=== PATIENT | female | born 1965 | race Caucasian/White ===

== ENCOUNTER 2017-07-13 13:06 | Inpatient (IN) | payer OTHER ==
--- NOTE | 2017-07-13 13:59 | HP ---
CIWA Score - CIWA Score Nausea/Vomitin-No Nausea/No Vomiting Muscle Tremors: 4-Moderate,w/Arms Extend Anxiety: 3 Agitation: 4-Moderately Restless Paroxysmal Sweats: 3 Orientation: 0-Oriented Tacttile Disturbances: 0-None Auditory Disturbances: 0-None Visual Disturbances: 0-None Headache: 0-None Present CIWA-Ar Total Score: 14 Admission ROS BHS - HPI Chief Complaint: I tried AA and didn't work. I need help. Allergies/Adverse Reactions: Allergies Allergy/AdvReac Type Severity Reaction Status Date / Time No Known Allergies Allergy Verified 07/13/17 14:00 History of Present Illness: pt is a 52yr old female with a history of alcohol dependence seeking detox for treatment. This is her first time in detox. pt was brought in by her son and ex- and she states she needs help. Exam Limitations: Intoxication - Ebola screening Have you traveled outside of the country in the last 21 days: No Have you had contact with anyone from an Ebola affected area: No Have you been sick,other than usual withdrawal symptoms: No Do you have a fever: No - Review of Systems Constitutional: Chills, Diaphoresis, Night Sweats, Changes in sleep EENT: reports: Tearing Respiratory: reports: No Symptoms reported Cardiac: reports: Syncope GI: reports: Diarrhea, Poor Appetite, Poor Fluid Intake, Indigestion : reports: No Symptoms Reported Musculoskeletal: reports: Back Pain Integumentary: reports: Flushing, Sweating Neuro: reports: Tingling, Tremors Endocrine: reports: Excessive Sweating, Flushing, Intolerance to Cold, Intolerance to Heat Hematology: reports: No Symptoms Reported Psychiatric: reports: Orientated x3, Agitated, Anxious Other Systems: Reviewed and Negative Patient History - Patient Medical History Hx Anemia: No Hx Asthma: No Hx Chronic Obstructive Pulmonary Disease (COPD): No Hx Cancer: No Hx Cardiac Disorders: No Hx Congestive Heart Failure: No Hx Hypertension: No Hx Hypercholesterolemia: No Hx Pacemaker: No HX Cerebrovascular Accident: No Hx Seizures: No Hx Dementia: No Hx Diabetes: No Hx Gastrointestinal Disorders: No Hx Liver Disease: No Hx Genitourinary Disorders: No Hx Sexually Transmitted Disorders: No Hx Renal Disease (ESRD): No Hx Thyroid Disease: No Hx Human Immunodeficiency Virus (HIV): No (negative) Hx Hepatitis C: No Hx Depression: Yes Hx Suicide Attempt: No (denies) Hx Bipolar Disorder: No Hx Schizophrenia: No - Patient Surgical History Past Surgical History: No - PPD History Previous Implant?: Yes Documented Results: Negative w/o proof PPD to be Administered?: Yes - Reproductive History Patient is a Female of Child Bearing Age (11 -55 yrs old): No Last Menstrual Period: 06/22/17 Patient : No - Smoking Cessation Smoking history: Never smoked Have you smoked in the past 12 months: No Hx Chewing Tobacco Use: No Initiated information on smoking cessation: No - Substance & Tx. History Hx Alcohol Use: Yes Substance Use Type: Alcohol Hx Substance Use Treatment: No - Substances Abused Alcohol Route: Oral Frequency: Daily Amount used: a fifth of vodka Age of first use: 25 Date of Last Use: 07/13/17 Family Disease History - Family Disease History Family History: Denies Admission Physical Exam [facility] - Physical General Appearance: Yes: Appropriately Dressed, Moderate Distress, Tremorous, Irritable, Sweating, Anxious HEENTM: Yes: Hearing grossly Normal, Normal Voice Respiratory: Yes: Lungs Clear, Normal Breath Sounds, No Respiratory Distress Neck: Yes: No masses,lesions,Nodules Breast: Yes: Within Normal Limits Cardiology: Yes: Regular Rhythm, Regular Rate, S1, S2 Abdominal: Yes: Normal Bowel Sounds, Non Tender, Soft Genitourinary: Yes: Within Normal Limits Back: Yes: Normal Inspection Musculoskeletal: Yes: Back pain Extremities: Yes: Normal Capillary Refill, Normal Inspection, Non-Tender, Tremors Neurological: Yes: Fully Oriented, Alert, Normal Response Integumentary: Yes: Normal Color Lymphatic: Yes: Within Normal Limits - Diagnostic (1) Alcohol dependence with uncomplicated withdrawal Current Visit: Yes Status: Chronic Cleared for Admission [facility] - Detox or Rehab [facility] Level of Care: Medically Managed Detox Regimen/Protocol: Librium
[2017-07-13] MEDS ORDERED: MENTHOL/PHENOL 1 EACH UD MM PRN (14:10)
[2017-07-13] MEDS ORDERED: guaiFENesin/D-METHORPHAN HB 10 ML UNIT-DOSE CUPS PO PRN (14:10)
[2017-07-13] MEDS ORDERED: IBUPROFEN 400 MG TABLET (FP) PO PRN (14:10)
[2017-07-13] MEDS ORDERED: hydrOXYzine PAMOATE 50 MG CAPSULE (FP) PO PRN (14:10)
[2017-07-13] MEDS ORDERED: chlordiazePOXIDE HCL 25 MG CAPSULE PO PRN (14:10)
[2017-07-13] MEDS ORDERED: MAG HYDROX/AL HYDROX/SIMETH 30 ML UNIT-DOSE CUP PO PRN (14:10)
[2017-07-13] MEDS ORDERED: LOPERAMIDE HCL 2 MG CAPSULE PO PRN (14:10)
[2017-07-13] MEDS ORDERED: MAGNESIUM HYDROX 2400MG/30ML ORAL SUSPENSION 30 ML CUP PO PRN (14:10)
[2017-07-13] MEDS ORDERED: P-EPHED 60MG/TRIPROLIDI 2.5MG TABLET PO PRN (14:10)
[2017-07-13] MEDS ORDERED: ACETAMINOPHEN 325 MG TABLET (FP) PO PRN (14:10)
[2017-07-13] MEDS ORDERED: MAGNESIUM CITRATE 300 ML BOTTLE PO PRN (14:10)
[2017-07-13 14:40] VITALS: BMI 22.7
[2017-07-13] MEDS ORDERED: chlordiazePOXIDE HCL 25 MG CAPSULE PO ONE (15:02)
[2017-07-13] MEDS: chlordiazePOXIDE HCL 25 MG CAPSULE PO SCH ×2 (17:25→22:15)
[2017-07-13] MEDS: THIAMINE HCL 100 MG TABLET (FP) PO SCH (22:14)
[2017-07-14] MEDS: chlordiazePOXIDE HCL 25 MG CAPSULE PO SCH ×4 (06:07→22:28)
--- NOTE | 2017-07-14 10:20 | PN ---
BHS CIWA - CIWA Score Nausea/Vomitin Muscle Tremors: 4-Moderate,w/Arms Extend Anxiety: 4-Mod. Anxious/Guarded Agitation: 4-Moderately Restless Paroxysmal Sweats: 3 Orientation: 0-Oriented Tacttile Disturbances: 1-Very Mild Itch/Numbness Auditory Disturbances: 0-None Visual Disturbances: 0-None Headache: 1-Very Mild CIWA-Ar Total Score: 20 BHS Progress Note (SOAP) Subjective: nausea, sweats, anxiety, tremors, interrupted sleep, Objective: 07/14/17 10:19 Vital Signs - 24 hr 07/13/17 07/13/17 07/13/17 14:37 17:11 21:37 Temperature 98 F 98.1 F 97.9 F Pulse Rate 95 H 99 H 93 H Respiratory 18 18 20 Rate Blood Pressure 162/70 159/89 139/67 07/14/17 07/14/17 07/14/17 00:30 00:40 03:30 Temperature Pulse Rate 88 88 Respiratory 18 18 Rate Blood Pressure 07/14/17 07/14/17 07:15 10:07 Temperature 97.5 F L 98.2 F Pulse Rate 72 76 Respiratory 18 16 Rate Blood Pressure 103/66 120/72 labs still pending Assessment: 07/14/17 10:20 withdrawal sx Plan: cont detox, fluids
[2017-07-14 10:27] LABS: MCH 34.6 pg (25.7-33.7); MCHC 33.7 g/dl (32.0-36.0); MEAN CELL VOLUME 102.5 fl (80-96); MEAN PLT VOLUME 8.9 fl (7.5-11.1); PLATELET COUNT 264 K/MM3 (134-434); RDW 13.8 % (11.6-15.6); WHITE BLOOD COUNT 6.2 K/mm3 (4.0-10.0)
[2017-07-14] MEDS: PRENATAL VITAMINS W/ FOLIC ACID TABLET (FP) PO SCH (10:44)
[2017-07-14 11:32] LABS: ALBUMIN 4.3 g/dl (3.4-5.0); ALK PHOS 102 U/L (45-117); ANION GAP 10 (8-16); BILIRUBIN,TOTAL 0.3 mg/dL (0.2-1.0); CALCIUM 8.9 mg/dL (8.5-10.1); CO2 25 mmol/L (21-32); CREATININE 0.6 mg/dL (0.55-1.02); GLUCOSE,RANDOM 98 mg/dL (74-106); SGOT/AST 26 U/L (15-37); SGPT/ALT 26 U/L (12-78); TOT PROT 7.9 g/dl (6.4-8.2)
--- NOTE | 2017-07-14 11:53 | CONSULT ---
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 Substance Abuse History: Reports started drinking at age of 25, daily a fifth of vodka. Medical History: denies Psychiatric History: denies any previous contact witha psychiatrist no history of psychiatric treatment, reports she is sad because she is here and wants to talk to her children, because she is worry, states that her children with their father. Patient is visibly upset, denies history of suicdal thoughts or attempts. Physical/Sexual Abuse/Trauma History: denies hisotry of abuse Mental Status Exam - Mental Status Exam Alert and Oriented to: Time, Place, Person Cognitive Function: Grossly Intact Patient Appearance: Well Groomed Mood: Sad, Anxious Affect: Appropriate, Mood Congruent Patient Behavior: Cooperative Speech Pattern: Clear Voice Loudness: Normal Thought Process: Goal Oriented Thought Disorder: Not Present Hallucinations: Denies Suicidal Ideation: Denies Homicidal Ideation: Denies Insight/Judgement: Fair Sleep: Fair Appetite: Fair Muscle strength/Tone: Normal Gait/Station: Normal Psychiatric Findings - Problem List ([place] 1, 2,3) (1) Alcohol-induced anxiety disorder Current Visit: Yes Status: Acute - Initial Treatment Plan Initial Treatment Plan: Supportive therapy provided, continuye detox. protocol.
[2017-07-14] MEDS: diphenhydrAMINE HCL 50 MG CAPSULE PO PRN (22:27)
[2017-07-14] MEDS: THIAMINE HCL 100 MG TABLET (FP) PO SCH (22:27)
[2017-07-15] MEDS: chlordiazePOXIDE HCL 25 MG CAPSULE PO SCH ×2 (05:48→11:03)
--- NOTE | 2017-07-15 09:51 | EKG ---
Test Reason : Blood Pressure : / mmHG Vent. Rate : 086 BPM Atrial Rate : 086 BPM P-R Int : 136 ms QRS Dur : 078 ms QT Int : 372 ms P-R-T Axes : 062 069 051 degrees QTc Int : 445 ms NORMAL SINUS RHYTHM NORMAL ECG NO PREVIOUS ECGS AVAILABLE Confirmed by MD PHI, ROLANDO ([id number]) on 07/15/2017 9:51:08 AM Referred By: Confirmed By:ROLANDO YIP MD
[2017-07-15] MEDS: PRENATAL VITAMINS W/ FOLIC ACID TABLET (FP) PO SCH (11:03)
--- NOTE | 2017-07-15 14:14 | PN ---
S CIWA - CIWA Score Nausea/Vomitin Muscle Tremors: 3 Anxiety: 3 Agitation: 2 Paroxysmal Sweats: 1-Minimal Palms Moist Orientation: 0-Oriented Tacttile Disturbances: 1-Very Mild Itch/Numbness Auditory Disturbances: 1-Very Mild Visual Disturbances: 0-None Headache: 2-Mild CIWA-Ar Total Score: 16 BHS Progress Note (SOAP) Subjective: alert,irritable,anxious,interrupted sleep,tremor Objective: 07/15/17 14:13 Vital Signs Temperature 98.1 F 07/15/17 11:10 Pulse Rate 81 07/15/17 11:10 Respiratory Rate 16 07/15/17 11:10 Blood Pressure 104/65 07/15/17 11:10 O2 Sat by Pulse Oximetry (%) Laboratory Last Values WBC 6.2 K/mm3 (4.0-10.0) 07/14/17 06:11 RBC 4.08 M/mm3 (3.60-5.2) 07/14/17 06:11 Hgb 14.1 GM/dL (10.7-15.3) 07/14/17 06:11 Hct 41.8 % (32.4-45.2) 07/14/17 06:11 MCV 102.5 fl (80-96) H 07/14/17 06:11 MCH 34.6 pg (25.7-33.7) H 07/14/17 06:11 MCHC 33.7 g/dl (32.0-36.0) 07/14/17 06:11 RDW 13.8 % (11.6-15.6) 07/14/17 06:11 Plt Count 264 K/MM3 (134-434) 07/14/17 06:11 MPV 8.9 fl (7.5-11.1) 07/14/17 06:11 Sodium 143 mmol/L (136-145) 07/14/17 06:11 Potassium 4.3 mmol/L (3.5-5.1) 07/14/17 06:11 Chloride 108 mmol/L (98-107) H 07/14/17 06:11 Carbon Dioxide 25 mmol/L (21-32) 07/14/17 06:11 Anion Gap 10 (8-16) 07/14/17 06:11 BUN 11 mg/dL (7-18) 07/14/17 06:11 Creatinine 0.6 mg/dL (0.55-1.02) 07/14/17 06:11 Creat Clearance w eGFR > 60 (>60) 07/14/17 06:11 Random Glucose 98 mg/dL (74-106) 07/14/17 06:11 Calcium 8.9 mg/dL (8.5-10.1) 07/14/17 06:11 Total Bilirubin 0.3 mg/dL (0.2-1.0) 07/14/17 06:11 AST 26 U/L (15-37) 07/14/17 06:11 ALT 26 U/L (12-78) 07/14/17 06:11 Alkaline Phosphatase 102 U/L (45-117) 07/14/17 06:11 Total Protein 7.9 g/dl (6.4-8.2) 07/14/17 06:11 Albumin 4.3 g/dl (3.4-5.0) 07/14/17 06:11 RPR Titer Nonreactive (NONREACTIVE) 07/14/17 06:11 Assessment: 07/15/17 14:13 withdrawal symptom Plan: continue detox
[2017-07-15] MEDS: chlordiazePOXIDE 5 MG CAPSULE PO SCH ×2 (17:05→22:19)
[2017-07-15] MEDS: diphenhydrAMINE HCL 50 MG CAPSULE PO PRN (22:19)
[2017-07-15] MEDS: THIAMINE HCL 100 MG TABLET (FP) PO SCH (22:19)
[2017-07-16] MEDS: chlordiazePOXIDE 5 MG CAPSULE PO SCH ×2 (06:05→10:21)
[2017-07-16 10:20] LABS: URINE APPEARANCE SLCLOUDY; URINE BILIRUBIN NEGATIVE (NEGATIVE); URINE BLOOD 3+ (NEGATIVE); URINE COLOR YELLOW; URINE GLUCOSE (UA) NEGATIVE (NEGATIVE); URINE KETONE NEGATIVE (NEGATIVE); URINE LEUK ESTERASE TRACE (NEGATIVE); URINE NITRITE NEGATIVE (NEGATIVE); URINE PROTEIN NEGATIVE (NEGATIVE); URINE UROBILINOGEN NEGATIVE mg/dL (0.2-1.0)
[2017-07-16] MEDS: PRENATAL VITAMINS W/ FOLIC ACID TABLET (FP) PO SCH (10:21)
--- NOTE | 2017-07-16 10:31 | PN ---
S Progress Note (SOAP) Subjective: ALERT,IRRITABLE,INTERRUPTED SLEEP, Objective: 07/16/17 10:30 Vital Signs Temperature 97.9 F 07/16/17 10:02 Pulse Rate 84 07/16/17 10:02 Respiratory Rate 20 07/16/17 10:02 Blood Pressure 108/64 07/16/17 10:02 O2 Sat by Pulse Oximetry (%) Assessment: 07/16/17 10:30 WITHDRAWAL SYMPTOM Plan: CONTINUE DETOX,DISCHARGE IN AM AT 0700
[2017-07-16 10:41] LABS: URINE MUCUS RARE; URINE RBC 3 /hpf (0-3); URINE WBC 9 /hpf (3-5)
[2017-07-16] MEDS: chlordiazePOXIDE HCL 10 MG CAPSULE PO SCH ×2 (17:22→22:05)
[2017-07-16] MEDS: THIAMINE HCL 100 MG TABLET (FP) PO SCH (22:05)
[2017-07-17] MEDS: chlordiazePOXIDE HCL 10 MG CAPSULE PO SCH ×2 (05:39→12:00)
[2017-07-17] MEDS: PRENATAL VITAMINS W/ FOLIC ACID TABLET (FP) PO SCH (09:11)
--- NOTE | 2017-07-17 09:12 | DS ---
[facility] Detox Discharge Summary Admission Date: 07/13/17 Discharge Date: 07/17/17 - History Present History: Alcohol Dependence - Physical Exam Results Vital Signs: Vital Signs Temperature 97.5 F L 07/17/17 06:23 Pulse Rate 65 07/17/17 06:23 Respiratory Rate 18 07/17/17 06:23 Blood Pressure 92/64 07/17/17 06:23 O2 Sat by Pulse Oximetry (%) - Treatment Hospital Course: Detox Protocol Followed, Detoxed Safely, Responded well, Discharged Condition Good, Rehab Referral Accepted - Medication Discharge Medications: Ambulatory Orders NK [No Known Home Medication] 07/13/17 - Diagnosis (1) Alcohol dependence with uncomplicated withdrawal Current Visit: Yes Status: Chronic - AMA Did Patient Leave Against Medical Advice: No
[2017-07-17 10:41] VITALS: BP 117/68; PULSE 85; TEMP 98.4
== END 2017-07-17 12:50 | disposition home or self-care (01) | DRG 775 ==
LOC: YASAS 13:06 → Y6N 14:53
PROVIDERS: ADMIT Internal Medicine; ATTEND Internal Medicine
PROC: HZ2ZZZZ Detoxification Services for Substance Abuse Treatment (ICD-10-PCS; principal; 2017-07-13)
DX: F10.230 Alcohol dependence with withdrawal, uncomplicated (principal); F10.280 Alcohol dependence with alcohol-induced anxiety disorder
CPT/HCPCS: 36415; 80053; 81003; 81015; 85027; 86593; 93005; 93010

== ENCOUNTER → 2022-06-23 | Day surgery (SDC) | payer OTHER | END | disposition home or self-care (01) | LOC: FMAMMOTONE 12:25 | PROVIDERS: ATTEND Family Medicine | PROC: 0HBU3ZX Excision of Left Breast, Percutaneous Approach, Diagnostic (ICD-10-PCS; principal; 2022-06-23) | DX: N60.22 Fibroadenosis of left breast (principal); N60.32 Fibrosclerosis of left breast; N64.89 Other specified disorders of breast; R92.0 Mammographic microcalcification found on diagnostic imaging of breast | CPT/HCPCS: 19081; 76098-TC-FY; 87899; 88305-TC; A4648 ==